=== PATIENT | male | born 1980 | race Hispanic/Latino ===

== ENCOUNTER 2018-04-19 08:53 | Emergency (ER) | payer BC ==
[~2018-04-19] VITALS: Ht 177.8 cm; Wt 120.2 kg
== END 2018-04-19 09:36 | disposition home or self-care (01) ==
LOC: FSED 08:53
DX: H92.02 Otalgia, left ear (principal); R03.0 Elevated blood-pressure reading, without diagnosis of hypertension
CPT/HCPCS: 99283

== ENCOUNTER 2020-03-18 00:20 | Emergency (ER) | payer BC ==
[~2020-03-18] VITALS: Ht 182.9 cm; Wt 120.2 kg
--- OUTSIDE RECORDS SUMMARY | 2020-03-18 00:31 | XMS REPORT | Continuity of Care Document ---
Author Author [facility] Organization [facility] Address [address] 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 Allergies, Adverse Reactions, Alerts This patient has no known allergies or adverse reactions. Medications This patient has no known medications. Procedures This patient has no known procedures. Encounters Start Date/Time End Date/Time [facility] Source 2018-04-19 08:53:00 2018-04-19 09:36:00 Departed Emergency Room [facility] [id number] [facility] Results This patient has no known results.
[2020-03-18] MEDS ORDERED: KETOROLAC TROMETHAMINE 60 MG/2 ML VIAL ONE (01:14)
[2020-03-18] MEDS ORDERED: PREDNISONE20 MG PO (01:34)
--- NOTE | 2020-03-18 01:35 | Emergency Department Note ---
History of Present Illnes History of Present Illness Chief Complaint: bilateral rib pain History of Present Illness This is a 39 year old male. was doing well until 16days ago then osborn, fever then sob/cp/fever then dx with covid on 03/04 then rxed abxs and prednisone then got better then 4 hours ago got bilateral rib pain Historian: Patient Arrival Mode: Car History limited by: condition of the patient Director Gift Required: No Onset (how long ago): hour(s) (4) Location: see above Quality: sharp Radiation: Reports non-radiation Severity: moderate Onset quality: gradual Duration (how long): hour(s) (4) Timing of current episode: constant Progression: unchanged Chronicity: new Context: Reports recent illness; Denies recent surgery, Denies recent immobilization, Denies recent travel, Denies trauma/injury, Denies new medications, Denies hx of DVT/PE, Denies non-compliance w/ medications Relieving factors: rest Exacerbating factors: movement Associated symptoms: Reports denies other symptoms Treatments prior to arrival: none Past Medical/Family History Physician Review I have reviewed the patient's past medical and family history. Any updates have been documented here. Past Medical History Recent Fever: No Clinical Suspicion of Infectio: No New/Unexplained Change in Ment: No Past Medical History: None Other Surgery: RT SHOULDER Social History Smoking Cessation: Never Smoker Counseling Performed: No Alcohol Use: None Any Illegal Drug Use: No Physically hurt or threatened: No Other Last Tetanus: OOD Any Pre-Existing Lines (PICC,: No Review of Systems Review of Systems Constitutional: Reports no symptoms EENTM: Reports no symptoms Cardiovascular: Reports as per HPI Respiratory: Reports no symptoms Gastrointestinal: Reports no symptoms Genitourinary: Reports no symptoms Musculoskeletal: Reports no symptoms Integumentary: Reports no symptoms Neurological: Reports no symptoms Psychological: Reports no symptoms Endocrine: Reports no symptoms Hematological/Lymphatic: Reports no symptoms Review of other systems: All other systems negative Physical Exam Related Data Allergies: Coded Allergies: No Known Allergies (Unverified , 04/19/18) Triage Vital Signs Vital Signs Date Time Temp Pulse Resp B/P (MAP) Pulse Ox O2 Delivery O2 Flow Rate FiO2 03/18/20 00:25 98.9 84 22 127/84 98 Room Air Vital signs reviewed: Yes Physical Exam CONSTITUTIONAL Constitutional: Present well-developed, Present well-nourished HENT HENT: Present normocephalic, Present atraumatic, Present oropharynx clear/moist, Present nose normal HENT L/R: Present left ext ear normal, Present right ext ear normal EYES Eyes: Reports PERRL, Reports conjunctivae normal NECK Neck: Present ROM normal, Present supple PULMONARY Pulmonary: Present effort normal, Present breath sounds normal CARDIOVASCULAR Cardiovascular: Present regular rhythm, Present heart sounds normal, Present capillary refill normal, Present normal rate GASTROINTESTINAL Abdominal: Present soft, Present nontender, Present bowel sounds normal GENITOURINARY Genitourinary: Present exam deferred SKIN Skin: Present warm, Present dry MUSCULOSKELETAL Musculoskeletal: Present ROM normal NEUROLOGICAL Neurological: Present alert, Present oriented x 3, Present no gross motor or sensory deficits PSYCHOLOGICAL Psychological: Present mood/affect normal, Present judgement normal Critical Care Time Comments pain resolved s/p toradol Assessment & Plan Medical Decision Making MDM see below Assessment & Plan Final Impression: (1) Pleurisy Depart Disposition: HOME, SELF-CARE Last Vital Signs Date Time Temp Pulse Resp B/P (MAP) Pulse Ox O2 Delivery O2 Flow Rate FiO2 03/18/20 00:25 98.9 84 22 127/84 98 Room Air Home Meds Active Scripts Prednisone (PREDNISONE) 20 Mg Tab, 60 MG PO DAILY PRN for MODERATE PAIN (4-6), #15 TAB take all 3 20 mg pills at once Prov:MICHEL WOLF 03/18/20 Medications in the ED Ketorolac Tromethamine 60 mg STK-MED ONCE .ROUTE ; Start 03/18/20 at 01:14; Stop 03/18/20 at 01:10; Status DC MICHEL WOLF Mar 18, 2020 01:35
[2020-03-18] MEDS ORDERED: KETOROLAC TROMETHAMINE 60 MG/2 ML VIAL IM ONE (04:30)
== END 2020-03-18 01:45 | disposition home or self-care (01) ==
LOC: FSED 00:25
DX: R09.1 Pleurisy (principal)
CPT/HCPCS: 99282; J1885

== ENCOUNTER 2020-10-06 20:33 | Emergency (ER) | payer OTHER, BC ==
[~2020-10-06] VITALS: Ht 208.3 cm; Wt 127.0 kg
[~2020-10-06 20:33] MED LIST: PREDNISONE20 MG PO
[2020-10-06] MEDS ORDERED: TYLENOL # 31 EA PO (22:19)
== END 2020-10-06 22:42 | disposition home or self-care (01) ==
LOC: FSED 21:05
DX: S62.326B Displaced fracture of shaft of fifth metacarpal bone, right hand, initial encounter for open fracture (principal); W01.198A Fall on same level from slipping, tripping and stumbling with subsequent striking against other object, initial encounter
CPT/HCPCS: 99284